=== PATIENT | female | born 2000 | race Hispanic/Latino ===

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

== ENCOUNTER 2024-10-24 18:43 | Emergency (ER) | payer BC, MEDICAID ==
[~2024-10-24] VITALS: Ht 149.9 cm; Wt 79.4 kg
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
[2024-10-24] MEDS: acetaMINOPHEN 500 MG TABLET PO ONE (19:26)
[2024-10-24 19:28] LABS: APPEARANCE,URINE CLEAR (CLEAR); BILIRUBIN,URINE NEGATIVE (NEGATIVE); GLUCOSE, URINE (UA) NEGATIVE (NEGATIVE); KETONES,URINE NEGATIVE (NEGATIVE); LEUKOCYTE ESTERASE ,URINE NEGATIVE Leu/uL (NEGATIVE); NITRATE,URINE NEGATIVE (NEGATIVE); OCCULT BLOOD,URINE NEGATIVE (NEGATIVE); PH,URINE 6.5 (5.0-8.0); PROTEIN,URINE NEGATIVE (NEGATIVE); UROBILINOGEN,URINE 0.2 mg/dL (0.2-1.0)
[2024-10-24 19:29] LABS: ADD UA MICROSCOPIC NO; COLOR,URINE LIGHT-YELLOW (YELLOW)
[2024-10-24 19:45] LABS: BASOPHILS # (AUTO) 0.04 K/uL (0.00-0.20); BASOPHILS % (AUTO) 0.3 % (0.0-5.0); EOSINOPHILS % (AUTO) 2.1 % (0.0-8.0); HEMATOCRIT 35.1 % (36-48); IMMATURE GRANULOCYTE ABSOLUTE 0.08 K/uL (0-1); LYMPHOCYTES # (AUTO) 1.4 K/uL (1.0-4.8); LYMPHOCYTES % (AUTO) 9.4 % (21.0-51.0); MEAN CORPUSCULAR HEMOGLOBIN 29.3 pg (27.0-33.0); MEAN CORPUSCULAR HGB CONC 33.6 g/dL (32.0-36.0); MEAN CORPUSCULAR VOLUME 87.1 fL (79-99); MONOCYTES # (AUTO) 0.7 K/uL (0.1-1.0); NEUTROPHILS % (AUTO) 82.6 % (40.0-77.0); PLATELET COUNT (AUTO) 302 K/uL (130-400); RED BLOOD CELL COUNT(AUTO) 4.03 MIL/uL (4.00-5.50); RED CELL DISTRIBUTION WIDTH 13.3 % (11.0-15.5); WHITE BLOOD COUNT (AUTO) 14.5 K/uL (4.8-10.8)
[2024-10-24 19:58] LABS: CREATININE 0.6 mg/dL (0.5-1.0); POTASSIUM 3.4 mmol/L (3.5-5.1)
--- NOTE | 2024-10-24 20:16 | NUR ---
PATIENT WITH ULTRASOUND.
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
[2024-10-24] MEDS: PoTASSium BIcarbonate/CIT AC 25 MEQ TABLET.EFF PO SCH (20:58)
[2024-10-24 21:16] VITALS: BP 134/80; PULSE 78; RESP 18; TEMP 98.4; O2SAT 98
== END 2024-10-24 21:17 | disposition home or self-care (01) ==
LOC: EDH 18:43
DX: O26.891 Other specified pregnancy related conditions, first trimester (principal); S00.83XA Contusion of other part of head, initial encounter; R10.2 Pelvic and perineal pain; Z3A.08 8 weeks gestation of pregnancy; Y04.0XXA Assault by unarmed brawl or fight, initial encounter; Y93.89 Activity, other specified; Y92.89 Other specified places as the place of occurrence of the external cause; Y99.8 Other external cause status
CPT/HCPCS: 36415; 76801; 80048; 81003; 84702; 85025; 86850; 86900; 86901; 99284

== ENCOUNTER 2024-12-31 20:49 | Emergency (ER) | payer MEDICAID ==
[~2024-12-31] VITALS: Ht 149.9 cm; Wt 85.7 kg
--- NOTE | 2024-12-31 20:52 | NUR ---
COVID, FLU, AND STREP COLLECTED AND SENT
[2024-12-31 21:12] LABS: RAPID GROUP A STREP negative (NEGATIVE)
[2024-12-31 21:18] LABS: SARS-CoV-2, RNA, NAAT NEGATIVE SARS CoV-2 (NEGATIVE)
[2024-12-31 21:22] LABS: INFLUENZA TYPE A Negative For Type A (NEGATIVE); INFLUENZA TYPE B Negative For Type B (NEGATIVE)
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
[2024-12-31 22:18] LABS: APPEARANCE,URINE CLEAR (CLEAR); BILIRUBIN,URINE NEGATIVE (NEGATIVE); COLOR,URINE YELLOW (YELLOW); GLUCOSE, URINE (UA) NEGATIVE (NEGATIVE); KETONES,URINE NEGATIVE (NEGATIVE); LEUKOCYTE ESTERASE ,URINE NEGATIVE Leu/uL (NEGATIVE); NITRATE,URINE NEGATIVE (NEGATIVE); OCCULT BLOOD,URINE NEGATIVE (NEGATIVE); PH,URINE 6.5 (5.0-8.0); PROTEIN,URINE 10 mg/dL (NEGATIVE); UROBILINOGEN,URINE 0.2 mg/dL (0.2-1.0)
[2024-12-31 22:20] LABS: ADD UA MICROSCOPIC YES
[2024-12-31 22:21] LABS: BACTERIA,URINE FEW /HPF (None Seen); MUCUS,URINE RARE LPF (None Seen); SQUAMOUS EPITHELIAL CELL,UR FEW /HPF (0-2)
[2024-12-31 22:22] VITALS: BP 116/68; PULSE 100; RESP 16; TEMP 100.1; O2SAT 98
== END 2024-12-31 23:07 | disposition home or self-care (01) ==
LOC: EDH 20:49
DX: O26.892 Other specified pregnancy related conditions, second trimester (principal); R50.9 Fever, unspecified; B34.9 Viral infection, unspecified; Z20.822 Contact with and (suspected) exposure to COVID-19; Z3A.19 19 weeks gestation of pregnancy
CPT/HCPCS: 81001; 87635; 87804; 87880; 99283